=== PATIENT | male | born 1980 | race African-American/Black ===

== ENCOUNTER → 2016-08-22 | Outpatient (CLI) | payer OTHER ==
[~2016-08-22] MED LIST: /QUET10TA; CELE20TA
--- NOTE | 2016-08-22 14:55 | REP ---
Chest two views HISTORY: Tuberculosis Comparison: 07/23/2012 The lungs are clear. The heart is normal in size. The pulmonary vasculature is normal in appearance. The bony structure is intact. IMPRESSION: No acute disease. Signed by Jamarcus Conrad MD 08/22/2016 02:45 P
== END ==
LOC: M WUC 11:24
PROVIDERS: ATTEND Surgery
DX: Z11.1 Encounter for screening for respiratory tuberculosis (principal)

== ENCOUNTER → 2016-11-30 | Outpatient (CLI) | payer MEDICAID | LOC: M OUTALCOH 12:37 | PROVIDERS: ATTEND Psychiatry & Neurology Psychiatry | DX: F10.10 Alcohol abuse, uncomplicated (principal) ==

== ENCOUNTER 2016-12-14 16:00 | Outpatient (RCR) | payer MEDICAID | END 2016-12-16 | LOC: M OUTALCOH 16:00 | PROVIDERS: ATTEND Psychiatry & Neurology Psychiatry | DX: F10.10 Alcohol abuse, uncomplicated (principal) ==

== ENCOUNTER → 2017-05-15 | Outpatient (REF) | payer OTHER ==
[2017-05-15 19:16] LABS: LITHIUM LEVEL 1.03 MEQ/L (0.60-1.20)
[2017-05-15 19:16] LABS: VALPROIC ACID (DEPAKOTE) 55.5 UG/ML (50.0-100.0)
== END ==
LOC: M LAB REF 16:19
DX: Z51.81 Encounter for therapeutic drug level monitoring (principal)

== ENCOUNTER → 2018-04-23 | Outpatient (REF) | payer OTHER | LOC: M LAB REF 12:33 | PROVIDERS: ATTEND Surgery | DX: Z91.013 Allergy to seafood (principal); Z91.011 Allergy to milk products ==

== ENCOUNTER → 2020-11-30 | Outpatient (CLI) | payer OTHER ==
[~2020-11-30] MED LIST changes: -/QUET10TA; +SERO1TAB
--- NOTE | 2020-12-01 05:27 | REP ---
INDICATION: R/O TB COMPARISON: 06/26/2017 TECHNIQUE: PA and lateral. FINDINGS: The mediastinum and cardiac silhouette are normal. The lung macario are clear and without acute consolidation, effusion, or pneumothorax. The skeletal structures are intact and normal. IMPRESSION: No acute cardiopulmonary process. <Electronically signed by Tyrone Vasquez > 12/01/20 [id number]
== END ==
LOC: M WUC 14:02
PROVIDERS: ATTEND Surgery
DX: Z11.1 Encounter for screening for respiratory tuberculosis (principal)